=== PATIENT | male | born 1985 | race Caucasian/White ===

== ENCOUNTER 2016-09-18 17:13 | Emergency (ER) | payer MEDICAID ==
[~2016-09-18] VITALS: Ht 170.2 cm; Wt 75.0 kg
[~2016-09-18 17:13] MED LIST: PROP10TA6 PO; TAP5 PO
[2016-09-18 17:20] VITALS: Ht 170.2 cm; Wt 75.0 kg
[2016-09-18] MEDS ORDERED: DILTIAZEM 25 MG INJ IV ONE (17:30)
[2016-09-18] MEDS ORDERED: SOD CHLORIDE 0.9% 1,000 ML IV STA (17:30)
[2016-09-18] MEDS ORDERED: DILTIAZEM-D5W 125MG/125ML DRIP 125 ML IV SCH (17:30)
[2016-09-18] MEDS ORDERED: LEVETIRACETAM IV 1,000 MG in SOD CHLORIDE 0.9% 100 ML IVPB STA (17:30)
[2016-09-18] MEDS ORDERED: LORAZEPAM 2 MG INJ IV STA (17:30)
--- NOTE | 2016-09-18 17:48 | RADRPT ---
PROCEDURE: XR Chest. CLINICAL INDICATION: Seizure/chest pain TECHNIQUE: AP view of the chest was obtained. COMPARISON: 02/27/2015 FINDINGS: The cardiomediastinal silhouette is within normal limits. The lungs are clear. No pleural effusion or pneumothorax is evident. Visualized osseous structures appear intact. IMPRESSION: No evidence of active cardiopulmonary disease. RPTAT: GG .Jaziel Rivera MD, Date Time Electronically viewed and signed by .Jaziel Rivera MD, on 09/18/2016 17:47 .O/
[2016-09-18] MEDS ORDERED: LORA1TAB PO (18:08)
[2016-09-18] MEDS ORDERED: ATEN50TA PO (18:09)
[2016-09-18] MEDS ORDERED: PROP50TA2 PO (18:10)
[2016-09-18 18:19] LABS: BASOPHILS % 0.5 % (0.0-2.0); EOSINOPHILS # 0.1 10^3/ul (0.0-0.5); EOSINOPHILS % 2.5 % (0.0-7.0); HEMATOCRIT 39.5 % (42.0-52.0); HEMOGLOBIN 13.6 g/dl (14.0-18.0); LYMPHOCYTES % 37.8 % (15.0-51.0); MEAN CORPUSCULAR HEMOGLOBIN 28.9 pg (29.0-33.0); MEAN CORPUSCULAR HGB CONC 34.4 g/dl (32.0-37.0); MEAN CORPUSCULAR VOLUME 83.9 fl (82.0-101.0); MEAN PLATELET VOLUME 8.3 fl (7.4-10.4); MONOCYTE # 0.4 10^3/ul (0.3-0.9); MONOCYTES % 6.9 % (0.0-11.0); NEUTROPHIL # 2.8 10^3/ul (1.6-7.5); NEUTROPHILS % 52.3 % (39.0-77.0); PLATELET COUNT 230 10^3/UL (140-440); RED BLOOD COUNT 4.71 10^6/ul (4.70-6.10); RED CELL DISTRIBUTION WIDTH 13.9 % (11.5-14.5); UNCORRECTED WBC 5.3 10^3/ul (4.8-10.8); WHITE BLOOD COUNT 5.3 10^3/ul (4.8-10.8)
[2016-09-18 18:21] LABS: CONDITION 1
[2016-09-18 18:25] LABS: CHLORIDE 102 mmol/L (97-110); SODIUM 141 mmol/L (135-144)
[2016-09-18 18:26] LABS: POTASSIUM 3.9 mmol/L (3.5-5.1)
[2016-09-18 18:27] LABS: INR 0.98
[2016-09-18 18:28] LABS: CREATININE 0.58 mg/dl (0.61-1.24)
[2016-09-18 18:29] LABS: ANION GAP 18 (8-16); BLOOD UREA NITROGEN 12 mg/dl (7-20); CALCIUM 8.7 mg/dl (8.4-10.2); CARBON DIOXIDE 25 mmol/L (21-31); GLUCOSE 88 mg/dl (70-220)
--- NOTE | 2016-09-18 18:37 | RADRPT ---
PROCEDURE: CT Brain without contrast. CLINICAL INDICATION: Seizure. TECHNIQUE: A CT of the brain without contrast was performed utilizing axial sections from the skul l base through the vertex. The patient was scanned without intravenous contrast enhancement. Sagitta l and coronal reformatted images were obtained using the data from the axial images. Total exam DLP is 720.23 mGy-cm. CTDIvol is 45.01 mGy. One or more of the following dose reduction techniques we re used: Automated exposure control, adjustment of the mA and/or kV according to patient size, use o f iterative reconstruction technique. COMPARISON: None available FINDINGS: There is normal rodrigez-white matter differentiation. The ventricles and cisterns are normal. There is no intracranial hemorrhage or space-occupying lesion. There is no skull fracture or lytic lesion. IMPRESSION: 1. Normal noncontrast CT scan of the brain. 2. No intracranial hemorrhage. RPTAT: QQ .Erickson Curtis MD, MD Date Time Electronically viewed and signed by .Erickson Curtis MD, MD on 09/18/2016 18:37 .R/
[2016-09-18 18:41] LABS: TROPONIN-I < 0.012 ng/ml (0.00-0.12)
[2016-09-18 18:46] LABS: BARBITURATES NEGATIVE (NEGATIVE)
[2016-09-18 18:47] LABS: BENZODIAZEPINES NEGATIVE (NEGATIVE); CANNABINOIDS POSITIVE (NEGATIVE); COCAINE NEGATIVE (NEGATIVE); OPIATES NEGATIVE (NEGATIVE)
[2016-09-18] MEDS ORDERED: LEVE100018 PO (20:47)
--- NOTE | 2016-09-18 20:54 | ERD ---
ER Documentation Chief Complaint Date/Time DATE: 09/18/16 TIME: 20:49 Chief Complaint ALOC - USED MARIJUANA TODAY HPI This is a 31-year-old male who is brought in for a seizure. The had arrived here later and gave me the history. states the patient had a seizure disorder morning and his seizure this afternoon both lasting 1-2 minutes with general tonic-clonic motion of the extremities with a postictal state for 5-10 minutes. She said he has had seizures in the past but never went into the doctor to get evaluated. She says that he does not use drugs with the patient told me that he does use methamphetamines but did not do any this morning. I asked about atrial fibrillation history and the patient states and the that he has palpitations intermittently from time to time. Again, he is never seek medical attention for this. I informed him that he was in atrial fibrillation with rapid ventricular response that spontaneously resolved and he must follow up with this. Patient says he has no symptoms other than having a mild dull headache. Denies any neck pain shoulder pain abdominal chest pain. ROS All systems reviewed and are negative except as per history of present illness. Medications Home Meds Active Scripts Levetiracetam* (Keppra*) 1,000 Mg Tablet, 1000 MG PO BID, #60 TAB Prov:ROGER NARAYAN DO 09/18/16 Reported Medications Propylthiouracil* (Propylthiouracil*) 50 Mg Tablet, 100 MG PO BID, TAB 09/18/16 Atenolol* (Atenolol*) 50 Mg Tablet, 50 MG PO DAILY, #30 TAB 09/18/16 Lorazepam* (Lorazepam*) 1 Mg Tablet, 0.5 MG PO Q8 Y for ANXIETY, #60 TAB 09/18/16 Discontinued Scripts Methimazole* (Methimazole*) 5 Mg Tab, 10 MG PO BID, #120 3 Refills Prov:THIGAO ESPINAL 03/07/15 Propranolol Hcl* (Propranolol Hcl*) 10 Mg Tab, 5 MG PO BID, #60 3 Refills Prov:THIAGO ESPINAL 03/07/15 Allergies Allergies: Coded Allergies: No Known Allergy (Unverified , 09/18/16) PMhx/Soc History of Surgery: Yes (L femur fracture surgery [facility] he was 11 y/o) Anesthesia Reaction: No Hx Neurological Disorder: No Hx Respiratory Disorders: No Hx Cardiac Disorders: No Hx Psychiatric Problems: No (uses marijuana and etoh daily) Hx Miscellaneous Medical Probl: Yes (thyroid disorder, alcohol abuse) Hx Alcohol Use: Yes (drinks daily) Hx Substance Use: Yes (MARIJUANA) Hx Tobacco Use: Yes Smoking Status: Current every day smoker FmHx Family History: No coronary disease Physical Exam Vitals Vital Signs Date Time Temp Pulse Resp B/P Pulse Ox O2 Delivery O2 Flow Rate FiO2 09/18/16 18:17 100 29 130/80 100 Room Air 09/18/16 17:20 98.3 154 28 139/73 99 Physical Exam Const: Well-developed, well-nourished Head: Atraumatic, normocephalic Eyes: Normal Conjunctiva, PERRLA, EOMI, normal sclera, no nystagmus ENT: Normal External Ears, Nose and Mouth, moist mucus membranes. Neck: Full range of motion. No meningismus, no lymphadenopathy. Resp: Clear to auscultation bilaterally, no wheezing, rhonchi, rales Cardio: Tachycardia irregular irregular rhythm, S1 S2 present] Abd: Soft, non tender x 4, non distended. Normal bowel sounds, no guarding or rebound, no pulsitile abdominal masses or bruits Skin: No petechiae or rashes, no ecchymosis , no maculopapular rash Back: No midline or flank tenderness Ext: No cyanosis, or edema, FROM x 4, normal inspection, neurovascularly intact x 4 Neur: Awake and alert, STR 5/5 x 4, sensation intact x 4, no focal findings, cerebellum intact Psych: Normal Mood and Affect Result Diagram: 09/18/16 1745 09/18/16 1745 Results 24 hrs Laboratory Tests Test 09/18/16 17:45 09/18/16 18:18 Activated Partial Thromboplast Time 26.0Sec Anion Gap 18 Basophils # 0.010^3/ul Basophils % 0.5% Blood Morphology Comment Blood Urea Nitrogen 12mg/dl Calcium Level 8.7mg/dl Carbon Dioxide Level 25mmol/L Chloride Level 102mmol/L Creatinine 0.58mg/dl Eosinophils # 0.110^3/ul Eosinophils % 2.5% Glucose Level 88mg/dl Hematocrit 39.5% Hemoglobin 13.6g/dl INR International Normalized Ratio 0.98 Lymphocytes # 2.010^3/ul Lymphocytes % 37.8% Mean Corpuscular Hemoglobin 28.9pg Mean Corpuscular Hemoglobin Concent 34.4g/dl Mean Corpuscular Volume 83.9fl Mean Platelet Volume 8.3fl Monocytes # 0.410^3/ul Monocytes % 6.9% Neutrophils # 2.810^3/ul Neutrophils % 52.3% Nucleated Red Blood Cells # 0.010^3/ul Nucleated Red Blood Cells % 0.0/100WBC Platelet Count 33677^3/UL Potassium Level 3.9mmol/L Prothrombin Time 13.0Sec Prothrombin Time Ratio 1.0 Red Blood Count 4.7110^6/ul Red Cell Distribution Width 13.9% Sodium Level 141mmol/L Troponin I < 0.012ng/ml White Blood Count 5.310^3/ul Urine Amphetamines Screen POSITIVE Urine Barbiturates NEGATIVE Urine Benzodiazepines Screen NEGATIVE Urine Cannabinoids POSITIVE Urine Cocaine Screen NEGATIVE Urine Opiates Screen NEGATIVE Current Medications Medications (Trade) Dose Ordered Sig/Merced Route PRN Reason Start Time Stop Time Status Last Admin Dose Admin Sodium Chloride (NS) 1,000 ml @ 1,000 mls/hr Q1H STAT IV 09/18/16 17:30 09/18/16 18:29 DC 09/18/16 18:07 Lorazepam 1 mg 1 mg ONCE STAT IV 09/18/16 17:30 09/18/16 17:33 DC 09/18/16 18:05 Levetiracetam/ Sodium Chloride (Keppra Iv/NS) 110 ml @ 400 mls/hr ONCE STAT IVPB 09/18/16 17:30 09/18/16 17:46 DC 09/18/16 18:45 Diltiazem HCl 20 mg 20 mg ONCE ONCE IV 09/18/16 17:30 09/18/16 17:33 DC 09/18/16 18:06 Diltiazem HCl (Cardizem-D5W 125 Mg/125 ml Drip) 125 ml @ 0 mls/hr Q0M IV 09/18/16 17:30 09/18/16 19:12 Procedures/MDM EKG: Rate/Rhythm: Atrial fibrillation with rapid ventricular response QRS, ST, QT: NORMAL, QRS, QT] Impression: Atrial fibrillation with rapid ventricular response The patient spontaneously went into normal sinus rhythm and EKG was repeated EKG2: Rate/Rhythm: Normal Sinus Rhythm,NL intervals QRS, ST, QT: NORMAL ME, QRS, QT] Impression: NORMAL EKG PROCEDURE: CT Brain without contrast. CLINICAL INDICATION: Seizure. TECHNIQUE: A CT of the brain without contrast was performed utilizing axial sections from the skull base through the vertex. The patient was scanned without intravenous contrast enhancement. Sagittal and coronal reformatted images were obtained using the data from the axial images. Total exam DLP is 720.23 mGy-cm. CTDIvol is 45.01 mGy. One or more of the following dose reduction techniques were used: Automated exposure control, adjustment of the mA and/or kV according to patient size, use of iterative reconstruction technique. COMPARISON: None available FINDINGS: There is normal rodrigez-white matter differentiation. The ventricles and cisterns are normal. There is no intracranial hemorrhage or space-occupying lesion. There is no skull fracture or lytic lesion. IMPRESSION: 1. Normal noncontrast CT scan of the brain. 2. No intracranial hemorrhage. RPTAT: QQ .Erickson Curtis MD, Date Time Electronically viewed and signed by .Erikcson Curtis MD, MD on 09/18/2016 18:37 .R/ CC: ROGER NARAYAN DO PROCEDURE: XR Chest. CLINICAL INDICATION: Seizure/chest pain TECHNIQUE: AP view of the chest was obtained. COMPARISON: 02/27/2015 FINDINGS: The cardiomediastinal silhouette is within normal limits. The lungs are clear. No pleural effusion or pneumothorax is evident. Visualized osseous structures appear intact. IMPRESSION: No evidence of active cardiopulmonary disease. RPTAT: GG .Jaziel Rivera MD, Date Time Electronically viewed and signed by .Jaziel Rivera MD, MD on 09/18/2016 17:47 .O/ CC: ROGER NARAYAN DO The patient was loaded with IV Keppra and given Ativan. I discussed at length with the patient and his the patient has a seizure disorder this may be due to amphetamine abuse. I advised the patient that his amphetamine abuse can be causing him to have atrial fibrillation as well as having seizure disorder. That he must stop this illicit drug use for fear of permanent harm, or . I also told him that it may not be related to his drug use and he must seek medical attention with the manager winter and neurologist he will be referred to. He was given a copy of his EKG demonstrating A. fib Currently he is awake alert oriented is not in atrial fibrillation he is in normal sinus rhythm I advised both of them to return to the ER if he ever has another seizure or feels palpitations Departure Diagnosis: Primary Impression: Seizure Additional Impression: Atrial fibrillation Atrial fibrillation type: paroxysmal Qualified Code: I48.0 - Paroxysmal atrial fibrillation Condition: Stable Patient Instructions: Atrial Fibrillation, Seizure, New Onset, Unk Cause [Adult ] Referrals: RAÚL MEYER CHAD M. MD LEKKOS, APOSTOLOS A. DO Sep 18, 2016 20:54
[2016-09-18 22:10] VITALS: BP 127/68; PULSE 85; RESP 16
== END 2016-09-18 22:13 | disposition home or self-care (01) ==
LOC: E/R 17:13
DX: R56.9 Unspecified convulsions (principal); I48.0 Paroxysmal atrial fibrillation; F17.210 Nicotine dependence, cigarettes, uncomplicated; R40.2142 Coma scale, eyes open, spontaneous, at arrival to emergency department; R40.2252 Coma scale, best verbal response, oriented, at arrival to emergency department; R40.2362 Coma scale, best motor response, obeys commands, at arrival to emergency department
CPT/HCPCS: 70450; 71010; 80048; 84484; 85025; 85610; 85730; 93005; G0479; J1953; J2060; J7030; Z7610; 36415; 96361; 96365; 96375

== ENCOUNTER 2016-10-25 10:52 | Emergency (ER) | payer MEDICAID ==
[~2016-10-25] VITALS: Ht 167.6 cm; Wt 70.5 kg
[~2016-10-25 10:52] MED LIST changes: +ATEN50TA PO; +LEVE100018 PO; +LORA1TAB PO; -PROP10TA6 PO; +PROP50TA2 PO; -TAP5 PO
[2016-10-25 10:57] VITALS: Ht 167.6 cm; Wt 70.5 kg
[2016-10-25] MEDS ORDERED: AMOX1TAB10 PO (12:14)
[2016-10-25] MEDS ORDERED: DIPHTH/TET/ACEL PERTUSS (ADULT) 0.5 ML VIAL IM* ONE (12:30)
--- NOTE | 2016-10-25 12:40 | ERD ---
ER Documentation Chief Complaint Date/Time DATE: 10/25/16 TIME: 12:37 Chief Complaint right thigh dog bite,per pt dog was vaccinated HPI Patient is a 31-year-old male who presents the ED with a dog bite to his right thigh that was sustained yesterday. Patient states that the dog was 1 of his neighbors dog and the dog is vaccinated. He denies fever or chills. He denies pain in his hip, knee. Denies difficulty walking or weakness. Denies drainage. No other complaints. Patient has not received his tetanus shot recently. ROS All systems reviewed and are negative except as per history of present illness. Medications Home Meds Active Scripts Amoxicillin/Potassium Clav (Amox-Clav 875-125 mg Tablet) 875-125 mg Tab, 1 TAB PO BID for 7 Days, #14 TAB Prov:SAM ZAYAS PA-C 10/25/16 Levetiracetam* (Keppra*) 1,000 Mg Tablet, 1000 MG PO BID, #60 TAB Prov:ROGER NARAYAN DO 09/18/16 Reported Medications Propylthiouracil* (Propylthiouracil*) 50 Mg Tablet, 100 MG PO BID, TAB 09/18/16 Atenolol* (Atenolol*) 50 Mg Tablet, 50 MG PO DAILY, #30 TAB 09/18/16 Lorazepam* (Lorazepam*) 1 Mg Tablet, 0.5 MG PO Q8 Y for ANXIETY, #60 TAB 09/18/16 Allergies Allergies: Coded Allergies: No Known Allergy (Unverified , 09/18/16) PMhx/Soc History of Surgery: Yes (L femur fracture surgery [facility] he was 11 y/o) Anesthesia Reaction: No Hx Neurological Disorder: No Hx Respiratory Disorders: No Hx Cardiac Disorders: No Hx Psychiatric Problems: No Hx Miscellaneous Medical Probl: Yes (thyroid disorder) Hx Alcohol Use: Yes (drinks daily) Hx Substance Use: Yes (MARIJUANA) Hx Tobacco Use: Yes Smoking Status: Current every day smoker FmHx Family History: No coronary disease, No diabetes, No other Physical Exam Vitals Vital Signs Date Time Temp Pulse Resp B/P Pulse Ox O2 Delivery O2 Flow Rate FiO2 10/25/16 10:57 97.6 78 18 145/82 98 Physical Exam GENERAL: Well-developed, well-nourished male. Appears in no acute distress. LUNG: Clear to auscultation bilaterally. No rhonchi, wheezing, rales or coarse breath sounds. HEART: Regular rate and rhythm. No murmurs, rubs or gallops. Extremities: Equal pulses bilaterally. No peripheral clubbing, cyanosis or edema. No unilateral leg swelling. right thigh has 5cm dog bite, no drainage. ecchymosis around bite. no active bleeding. non tender to hip and knee. NEUROLOGIC: Alert and oriented. Moving all four extremities. 5/5 strength in all extremities. Normal speech. Steady gait. SKIN: Normal color. Warm and dry. No rashes or lesions. Capillary refill < 2 seconds Results 24 hrs Current Medications Medications (Trade) Dose Ordered Sig/Merced Route PRN Reason Start Time Stop Time Status Last Admin Dose Admin Diphtheria/ Tetanus/Acell Pertussis (Adacel) 0.5 ml ONCE ONCE IM* 10/25/16 12:30 10/25/16 12:31 DC 10/25/16 12:19 Procedures/MDM ER COURSE: I kept the patient and/or family informed of laboratory and diagnostic imaging results throughout the emergency room course. PROCEDURES: Tetanus shot. Wound was cleaned. Tolerated procedure and medication well. No adverse reaction. MEDICAL DECISION MAKING: This is a 31-year-old male who presents with dog bite to his right thigh. Vital signs were reviewed. Patient is afebrile. Patient is not hypoxic. Patient is not toxic or ill-appearing. Patient has a dog bite. Low suspicion for necrotizing fasciitis, SJS, toxic epidermal necrolysis, Kawasaki, erythema multiforme, gangrene, scarlet fever, meningococcemia, sepsis, anaphylaxis, sepsis, deep space infection, or foreign body. DISCHARGE: At this time, patient is stable for discharge and outpatient management with no new complaints during the ER course. Patient was sent home with Augmentin. Patient will be discharged home with instructions to recheck for new or worsening symptoms such as fever, nausea, weakness, LOC and to follow up with primary care in the next 1-2 days. Patient was advised to return to the ER for any new or worsening symptoms. Plan was discussed and patient and/or family understands and agrees. Home instructions were given. Departure Diagnosis: Primary Impression: Dog bite Encounter type: initial encounter Qualified Code: W54.0XXA - Dog bite, initial encounter Condition: Stable Patient Instructions: Dog Bite Additional Instructions: Call your primary care doctor TOMORROW for an appointment during the next 1-2 days.See the doctor sooner or return here if your condition worsens before your appointment time. SAM ZAYAS PA-C Oct 25, 2016 12:40
== END 2016-10-25 12:58 | disposition home or self-care (01) ==
LOC: FTE 10:52
DX: S71.151A Open bite, right thigh, initial encounter (principal); F17.210 Nicotine dependence, cigarettes, uncomplicated; W54.0XXA Bitten by dog, initial encounter; Y92.9 Unspecified place or not applicable; Z23 Encounter for immunization
CPT/HCPCS: 90471; 90715; Z7502

== ENCOUNTER 2016-11-18 06:14 | Emergency (ER) | payer MEDICAID ==
[~2016-11-18] VITALS: Ht 172.7 cm; Wt 72.0 kg
[~2016-11-18 06:14] MED LIST changes: +AMOX1TAB10 PO
[2016-11-18 06:16] VITALS: Ht 172.7 cm; Wt 72.0 kg
[2016-11-18] MEDS ORDERED: CEPH-443 PO (07:09)
[2016-11-18] MEDS ORDERED: HC30CR25 TOP (07:10)
[2016-11-18] MEDS ORDERED: BEN25 PO (07:10)
--- NOTE | 2016-11-18 07:17 | ERD ---
ER Documentation Chief Complaint Date/Time DATE: 11/18/16 TIME: 07:14 Chief Complaint Noticed a bite on r side of face sunday HPI Is a 31-year-old male who presents to the ED with a bite to the right side of his face near his nose 4 days. He states that he got bit by possibly a spider. He denies pain, numbness, tingling however he does state it is itchy. He denies fever or chills. Denies shortness of breath or difficulty breathing. He denies nausea, vomiting or diarrhea. He has no other complaints. Denies drainage or bleeding. ROS All systems reviewed and are negative except as per history of present illness. Medications Home Meds Active Scripts Hydrocortisone* Topical (Hydrocortisone* Topical) 2.5%-28.3 Gm Cream..g., 1 APPLIC TOP BID, #1 TUB Prov:SAM ZAYAS-C 11/18/16 Diphenhydramine Hcl* (Benadryl*) 25 Mg Cap, 25 MG PO Q6, #30 CAP Prov:SAM ZAYAS PA-C 11/18/16 Cephalexin* (Keflex*) 500 Mg Capsule, 500 MG PO QID for 5 Days, CAP Prov:SAM ZAYAS-C 11/18/16 Amoxicillin/Potassium Clav (Amox-Clav 875-125 mg Tablet) 875-125 mg Tab, 1 TAB PO BID for 7 Days, #14 TAB Prov:SAM ZAYAS-C 10/25/16 Levetiracetam* (Keppra*) 1,000 Mg Tablet, 1000 MG PO BID, #60 TAB Prov:ROGER NARAYAN DO 09/18/16 Reported Medications Propylthiouracil* (Propylthiouracil*) 50 Mg Tablet, 100 MG PO BID, TAB 09/18/16 Atenolol* (Atenolol*) 50 Mg Tablet, 50 MG PO DAILY, #30 TAB 09/18/16 Lorazepam* (Lorazepam*) 1 Mg Tablet, 0.5 MG PO Q8 Y for ANXIETY, #60 TAB 09/18/16 Allergies Allergies: Coded Allergies: No Known Allergy (Unverified , 09/18/16) PMhx/Soc Medical and Surgical Hx: pt denies Medical Hx, pt denies Surgical Hx History of Surgery: Yes (L femur fracture surgery [facility] he was 11 y/o) Anesthesia Reaction: No Hx Neurological Disorder: No Hx Respiratory Disorders: No Hx Cardiac Disorders: No Hx Psychiatric Problems: No Hx Miscellaneous Medical Probl: Yes (thyroid disorder) Hx Alcohol Use: Yes (24 DRINKS/WEEK) Hx Substance Use: No Hx Tobacco Use: Yes (5 CIGS/DAY) Smoking Status: Current every day smoker Physical Exam Vitals Vital Signs Date Time Temp Pulse Resp B/P Pulse Ox O2 Delivery O2 Flow Rate FiO2 11/18/16 06:16 98.1 88 18 133/88 98 Physical Exam GENERAL: Well-developed, well-nourished female. Appears in no acute distress. HEAD: Normocephalic, atraumatic. EYES: Pupils are equally reactive bilaterally. EOMs grossly intact. No conjunctival erythema. ENT: Moist mucous membranes. No uvula deviation. No kissing tonsils. No exudates. 2 cm erythematous lesion lateral to right nose. no drainage, no warmth or induration or fluctuance. NECK: Supple. No lymphadenopathy or thyromegaly. No meningismus. negative kernig. negative brudinski. LUNG: Clear to auscultation bilaterally. No rhonchi, wheezing, rales or coarse breath sounds. HEART: Regular rate and rhythm. No murmurs, rubs or gallops. SKIN: Normal color. Warm and dry. No rashes or lesions. Capillary refill < 2 seconds Procedures/MDM ER COURSE: I kept the patient and/or family informed of laboratory and diagnostic imaging results throughout the emergency room course. MEDICAL DECISION MAKING: This is a 31 year old male who presents with bug bite to right side of nose. Vital signs were reviewed. Patient is afebrile. Patient is not hypoxic. Patient is not toxic or ill-appearing. Patient has a bug bite. Low suspicion for necrotizing fasciitis, SJS, toxic epidermal necrolysis, Kawasaki, erythema multiforme, gangrene, scarlet fever, meningococcemia, sepsis, anaphylaxis, sepsis, deep space infection, or foreign body. DISCHARGE: At this time, patient is stable for discharge and outpatient management with no new complaints during the ER course. Patient was sent home with Keflex and Benadryl and hydrocortisone cream. Patient will be discharged home with instructions to recheck for new or worsening symptoms such as fever, nausea, weakness, LOC and to follow up with primary care in the next 1-2 days. Patient was advised to return to the ER for any new or worsening symptoms. Plan was discussed and patient and/or family understands and agrees. Home instructions were given. Departure Diagnosis: Primary Impression: Bite Condition: Stable Patient Instructions: Wound Care Additional Instructions: Call your primary care doctor TOMORROW for an appointment during the next 1-2 days.See the doctor sooner or return here if your condition worsens before your appointment time. SAM ZAYAS PA-C Nov 18, 2016 07:17
== END 2016-11-18 08:15 | disposition home or self-care (01) ==
LOC: FTE 06:14
DX: S00.36XA Insect bite (nonvenomous) of nose, initial encounter (principal); F17.210 Nicotine dependence, cigarettes, uncomplicated; W57.XXXA Bitten or stung by nonvenomous insect and other nonvenomous arthropods, initial encounter; Y92.9 Unspecified place or not applicable
CPT/HCPCS: 99283

== ENCOUNTER 2017-03-11 05:38 | Emergency (ER) | payer MEDICAID ==
[~2017-03-11] VITALS: Ht 167.6 cm; Wt 77.0 kg
[~2017-03-11 05:38] MED LIST changes: +BEN25 PO; +CEPH-443 PO; +HC30CR25 TOP
[2017-03-11 05:40] VITALS: Ht 167.6 cm; Wt 77.0 kg
[2017-03-11] MEDS ORDERED: SOD CHLORIDE 0.9% 1,000 ML IV STA (05:51)
[2017-03-11] MEDS ORDERED: LEVETIRACETAM 1000 MG (PMX) 100 ML IVPB STA (05:51)
[2017-03-11 06:36] LABS: ADD SCAN DIFF NO
[2017-03-11 06:39] LABS: BASOPHIL # 0.1 10^3/ul (0.0-0.1); EOSINOPHILS # 0.2 10^3/ul (0.0-0.5); HEMATOCRIT 39.4 % (42.0-52.0); HEMOGLOBIN 13.2 g/dl (14.0-18.0); LYMPHOCYTES # 2.1 10^3/ul (0.8-2.9); LYMPHOCYTES % 36.9 % (15.0-51.0); MEAN CORPUSCULAR HEMOGLOBIN 31.4 pg (29.0-33.0); MEAN CORPUSCULAR HGB CONC 33.5 g/dl (32.0-37.0); MEAN CORPUSCULAR VOLUME 93.6 fl (82.0-101.0); MEAN PLATELET VOLUME 9.2 fl (7.4-10.4); MONOCYTE # 0.4 10^3/ul (0.3-0.9); MONOCYTES % 6.5 % (0.0-11.0); NEUTROPHIL # 2.9 10^3/ul (1.6-7.5); NEUTROPHILS % 51.4 % (39.0-77.0); PLATELET COUNT 292 10^3/UL (140-415); RED BLOOD COUNT 4.21 10^6/ul (4.70-6.10); RED CELL DISTRIBUTION WIDTH 15.1 % (11.5-14.5); WHITE BLOOD COUNT 5.7 10^3/ul (4.8-10.8)
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
[2017-03-11 07:02] LABS: CALCIUM 9.2 mg/dl (8.4-10.2); CREATININE 0.89 mg/dl (0.61-1.24)
[2017-03-11] MEDS ORDERED: PHEN100C PO (07:11)
[2017-03-11] MEDS ORDERED: SOD CHLORIDE 0.9% 1,000 ML IV ONE (08:00)
[2017-03-11 08:29] VITALS: TEMP 98.1
[2017-03-11] MEDS ORDERED: METOCLOPRAMIDE 10 MG INJ IV ONE (08:30)
[2017-03-11] MEDS ORDERED: PHENYTOIN 1,000 MG in SOD CHLORIDE 0.9% 100 ML IV ONE (10:00)
[2017-03-11] MEDS ORDERED: LEVO125T75 PO (10:46)
[2017-03-11 11:21] VITALS: BP 105/63; PULSE 80; RESP 20
== END 2017-03-11 11:53 | disposition home or self-care (01) ==
LOC: E/R 05:38
DX: R56.9 Unspecified convulsions (principal); F17.210 Nicotine dependence, cigarettes, uncomplicated
CPT/HCPCS: 36415; 80048; 80185; 82962; 85025; 96361; 96374; 96375; J1165; J1953; J2765; J7030; Z7502; Z7610

== ENCOUNTER 2017-05-27 19:49 | Emergency (ER) | payer MEDICAID ==
[~2017-05-27] VITALS: Ht 170.2 cm; Wt 74.5 kg
[~2017-05-27 19:49] MED LIST changes: -AMOX1TAB10 PO; -ATEN50TA PO; -BEN25 PO; -CEPH-443 PO; -HC30CR25 TOP; +LEVO125T75 PO; -LORA1TAB PO; +PHEN100C PO; -PROP50TA2 PO
[2017-05-27 19:50] VITALS: TEMP 98.4
[2017-05-27] MEDS ORDERED: LORAZEPAM 2 MG INJ IV STA (19:51)
[2017-05-27 19:52] VITALS: Ht 170.2 cm; Wt 74.5 kg
[2017-05-27] MEDS ORDERED: ACETAMINOPHEN 325 MG TAB PO ONE (20:00)
[2017-05-27] MEDS ORDERED: LEVETIRACETAM 1000 MG (PMX) 100 ML IVPB STA (20:00)
--- NOTE | 2017-05-27 20:20 | ERD ---
ER Documentation Chief Complaint Date/Time DATE: 05/27/17 TIME: 20:16 Chief Complaint LYNNETTE RAJosefina from home, tonic-clonic sz per EMS report HPI This is a 32-year-old male who presents to the emergency room with a witnessed generalized tonic-clonic seizure lasting less than 1 minute. The patient takes Keppra. Using a quoter he states that he has not taken his Keppra for at least 3-4 days stating that he has been working hard. The patient is describing a headache that is 8 out of 10 and throbbing. He does have a history of traumatic brain injury status post craniotomy. He states his headache started after the seizure not before. He denies any fevers or chills chest pain or shortness of breath. He states that his last seizure was 5 years ago however the patient had 2 visits in September related to seizures. ROS All systems reviewed and are negative except as per history of present illness. Medications Home Meds Active Scripts Levetiracetam* (Keppra*) 1,000 Mg Tablet, 1000 MG PO BID, #60 TAB Prov:ROGER NARAYAN DO 09/18/16 Reported Medications Levothyroxine Sodium* (Levothyroxine Sodium*) 125 Mcg Tablet, 125 MCG PO BEFORE BREAKFAST, #30 TAB 03/11/17 Phenytoin* Sodium Extended (Dilantin*) 100 Mg Capsule, 100 MG PO HS 03/11/17 Allergies Allergies: Coded Allergies: No Known Allergy (Unverified , 03/11/17) PMhx/Soc History of Surgery: Yes (L femur fracture surgery [facility] he was 11 y/o) Anesthesia Reaction: No Hx Neurological Disorder: Yes (SZ) Hx Respiratory Disorders: No Hx Cardiac Disorders: No Hx Psychiatric Problems: No Hx Miscellaneous Medical Probl: Yes (hyperthyroid disorder, Hep C) Hx Alcohol Use: Yes (24 DRINKS/WEEK) Hx Substance Use: No Hx Tobacco Use: Yes (5 CIGS/DAY) FmHx Family History: No diabetes Physical Exam Vitals Vital Signs Date Time Temp Pulse Resp B/P Pulse Ox O2 Delivery O2 Flow Rate FiO2 05/27/17 19:52 99.2 112 18 140/79 96 Physical Exam General: Well developed, well nourished, no acute distress Head: Normocephalic, atraumatic. Eyes: Pupils equally reactive, EOM intact ENT: Moist mucous membranes Neck: Supple, no lymphadenopathy Respiratory: Lungs clear bilaterally, no distress Cardiovascular: RRR, no murmurs, rubs, or gallops Abdominal: Soft, non-tender, non-distended, no peritoneal signs : Deferred MSK: No edema, no unilateral swelling, 5/5 strength Neurologic: Alert and oriented, moving all extremities, normal speech, no focal weakness, no cerebellar signs, no meningismus. Skin: No rash Psych: Normal mood Results 24 hrs Laboratory Tests Test 05/27/17 19:59 Bedside Glucose 87mg/dL Current Medications Medications (Trade) Dose Ordered Sig/Merced Route PRN Reason Start Time Stop Time Status Last Admin Dose Admin Lorazepam (Ativan) 0.5 mg ONCE STAT IV 05/27/17 19:51 05/27/17 20:02 DC Acetaminophen 650 mg 650 mg ONCE ONCE PO 05/27/17 20:00 05/27/17 20:02 DC 05/27/17 20:08 Levetiracetam (Keppra 1,000mg/ 100ml (Pmx)) 100 ml @ 400 mls/hr ONCE STAT IVPB 05/27/17 20:00 05/27/17 20:14 DC 05/27/17 20:08 Procedures/MDM EKG, MONITORS, & DIAGNOSTIC IMAGING: CT brain: No evidence of acute intracranial process per radiologist LAB INTERPRETATION: Accu-Chek normal MEDICAL DECISION MAKING: The patient presents with a witnessed generalized tonic-clonic seizure. This is consistent with his baseline seizure disorder likely exacerbated by the patient's noncompliance with medication regimen. The patient's Accu-Chek was normal in the field. He is returned to baseline and has no signs or symptoms concerning for meningitis or infectious process. The patient is describing a headache. While this is most likely secondary to the patient's seizure the patient does have a history of traumatic brain injury and would benefit from CT imaging to rule out hemorrhage. Again, low clinical concern for this process. Seizure precautions initiated Given that the patient does have regular seizures with a clear trigger I do not believe laboratory testing is necessary. ER COURSE: The patient was given a Keppra load here in the emergency department. His CT brain is negative. He continues to be at baseline with no recurrent seizures. At this time I feel the patient can be safely discharged home. He states that he has his Keppra at home. He was urged to keep compliant with medication regimen. Tylenol given for headache I kept the patient and/or family informed of laboratory and diagnostic imaging results throughout the emergency room course. DISPOSITION PLAN: We discussed follow up with the patient's primary care doctor within 24 to 48 hours as needed. We also discussed return to the emergency room for worsening symptoms or worsening condition. Outpatient referral: [None required] Discharge Medications: None required Departure Diagnosis: Primary Impression: Seizure disorder Additional Impressions: Seizure Noncompliance with medication regimen Condition: Stable SANTA CRISTINA MD May 27, 2017 20:20
--- NOTE | 2017-05-27 21:23 | RADRPT ---
PROCEDURE: CT HEAD WITHOUT CONTRAST: CLINICAL INDICATION: 32 years of age male, seizure . COMPARISON: None available. TECHNIQUE: CT of the head was performed without IV contrast. Coronal and sagittal reformatted images were obtained from the axial source images. Images were reviewed on a high-resolution PACS workstat ion. Dose information: The estimated radiation dose (CTDI vol mGy) for each series in this exam is 45. Th e estimated cumulative dose (DLP mGy-cm) is 720. One or more of the following dose reduction techniques were used: - Automated exposure control. - Adjustment of the mA and/or kV according to patient size. - Use of iterative reconstruction technique. FINDINGS: Parenchyma: Negative for evidence of acute intracranial hemorrhage, mass effect or large territory i nfarct. Clayton-white matter differentiation is maintained. Ventricles and extra-axial spaces: Appropriate for age. No abnormal extra-axial fluid collections ar e identified. Visualized paranasal sinuses: Clear. Mastoid air cells: Clear. Bones: No focal abnormality. Additional comment: None. IMPRESSION: Negative for evidence of acute abnormality Unremarkable CT brain for age. RPTAT: HCTS Physician Tao Date Time Electronically viewed and signed by Physician Tao on 05/27/2017 21:23 /
[2017-05-27 22:00] VITALS: BP 116/97; PULSE 99; RESP 20
== END 2017-05-27 22:00 | disposition home or self-care (01) ==
LOC: E/R 19:49
DX: G40.909 Epilepsy, unspecified, not intractable, without status epilepticus (principal); F17.210 Nicotine dependence, cigarettes, uncomplicated; R51 Headache; Z91.14 Patient's other noncompliance with medication regimen
CPT/HCPCS: 70450; 82962; 96374; J1953; Z7502; Z7610

== ENCOUNTER 2017-08-27 06:03 | Emergency (ER) | payer MEDICAID ==
[~2017-08-27] VITALS: Ht 170.2 cm; Wt 70.0 kg
[2017-08-27 06:12] VITALS: Ht 170.2 cm; Wt 70.0 kg
[2017-08-27] MEDS ORDERED: LEVETIRACETAM 1000 MG (PMX) 100 ML IVPB STA (06:31)
[2017-08-27] MEDS ORDERED: LEVETIRACETAM IV 1,000 MG in DEXTROSE 5% 100 ML IV SCH (06:52)
[2017-08-27] MEDS ORDERED: ACETAMINOPHEN 500 MG TAB PO STA (07:07)
--- NOTE | 2017-08-27 07:16 | ERD ---
ER Documentation Chief Complaint Chief Complaint wittnessed at home HPI This is a 32-year-old male with a history of seizure disorder on Keppra who states noncompliance with Keppra for at least 3 days because he has been hanging out with friends. The patient had a witnessed, generalized tonic- clonic seizure today with spontaneous resolution, short postictal state. Accu- Chek in the field was normal. The patient has a mild headache that is similar to episodes in the past. He states regular breakthrough seizures at least once per month. This is similar. No head trauma. ROS All systems reviewed and are negative except as per history of present illness. Medications Home Meds Active Scripts Levetiracetam* (Keppra*) 1,000 Mg Tablet, 1000 MG PO BID, #60 TAB Prov:ROGER NARAYAN DO 09/18/16 Reported Medications Levothyroxine Sodium* (Levothyroxine Sodium*) 125 Mcg Tablet, 125 MCG PO BEFORE BREAKFAST, #30 TAB 03/11/17 Phenytoin* Sodium Extended (Dilantin*) 100 Mg Capsule, 100 MG PO HS 03/11/17 Allergies Allergies: Coded Allergies: No Known Allergy (Unverified , 03/11/17) PMhx/Soc History of Surgery: Yes (L femur fracture surgery [facility] he was 11 y/o, head Sx) Anesthesia Reaction: No Hx Neurological Disorder: Yes (SZ) Hx Respiratory Disorders: No Hx Cardiac Disorders: No Hx Psychiatric Problems: No Hx Miscellaneous Medical Probl: Yes (hyperthyroid disorder, Hep C) Hx Alcohol Use: Yes (24 DRINKS/WEEK) Hx Substance Use: No Hx Tobacco Use: Yes (5 CIGS/DAY) Smoking Status: Current every day smoker FmHx Family History: No diabetes Physical Exam Vitals Vital Signs Date Time Temp Pulse Resp B/P Pulse Ox O2 Delivery O2 Flow Rate FiO2 08/27/17 06:12 98.0 79 18 128/79 97 Physical Exam General: Well developed, well nourished, no acute distress Head: Normocephalic, atraumatic. Eyes: Pupils equally reactive, EOM intact ENT: Moist mucous membranes Neck: Supple, no lymphadenopathy Respiratory: Lungs clear bilaterally, no distress Cardiovascular: RRR, no murmurs, rubs, or gallops Abdominal: Soft, non-tender, non-distended, no peritoneal signs : Deferred MSK: No edema, no unilateral swelling, 5/5 strength Neurologic: Alert and oriented, moving all extremities, normal speech, no focal weakness, no cerebellar signs Skin: No rash Psych: Normal mood Results 24 hrs Laboratory Tests Test 08/27/17 06:38 Bedside Glucose 99mg/dL Current Medications Medications (Trade) Dose Ordered Sig/Mer[place] Route PRN Reason Start Time Stop Time Status Last Admin Dose Admin Levetiracetam 100 ml @ 400 mls/hr ONCE STAT IVPB 08/27/17 06:31 08/27/17 06:45 Cancel Levetiracetam/ Dextrose (Keppra Iv/D5W) 110 ml @ 430 mls/hr ONCE IV 08/27/17 06:52 08/27/17 07:08 DC 08/27/17 06:57 Acetaminophen (Tylenol Tab) 1,000 mg ONCE STAT PO 08/27/17 07:07 08/27/17 07:08 DC Procedures/MDM The patient states noncompliance with seizure medications. This is the likely trigger for his seizure today. He has no evidence of meningitis, infection or intracranial hemorrhage or trauma. Patient's Accu-Chek in the field was normal. Seizure precautions were initiated. The patient was given a gram of Keppra here in the emergency room IV. The patient has stabilized and is resting comfortably. The patient was advised of compliance with his seizure regimen is imperative. The patient was advised and re-informed that he should not be driving and should follow-up with a neurologist. The patient verbalized understanding. He states that he has his medication at home and does not require refill. No clinical evidence of alcohol withdrawal or alternative explanation at this point. At this point the patient is ambulatory has recovered And has not had a recurrent seizure. The patient is safe for discharge. We discussed follow up with the patient's primary care doctor within 24 to 48 hours as needed. We also discussed return to the emergency room for worsening symptoms or worsening condition. Outpatient referral: Neurology Discharge Medications: None required Departure Diagnosis: Primary Impression: Seizure disorder Additional Impression: Noncompliance with medication regimen Condition: SANTA Hoff MD Aug 27, 2017 07:16
[2017-08-27 07:28] VITALS: BP 129/77; PULSE 76; RESP 17; TEMP 98
[2017-08-27] MEDS ORDERED: LEVE100018 PO (09:02)
== END 2017-08-27 10:16 | disposition home or self-care (01) ==
LOC: E/R 06:03
DX: G40.909 Epilepsy, unspecified, not intractable, without status epilepticus (principal); R40.2142 Coma scale, eyes open, spontaneous, at arrival to emergency department; R40.2252 Coma scale, best verbal response, oriented, at arrival to emergency department; R40.2362 Coma scale, best motor response, obeys commands, at arrival to emergency department; Z91.14 Patient's other noncompliance with medication regimen
CPT/HCPCS: 82962; 96374; J1953; Z7502; Z7610